=== PATIENT | male | born 1965 | race Caucasian/White ===

== ENCOUNTER 2016-05-27 22:45 | Emergency (ER) | payer MEDICARE, OTHER ==
[~2016-05-27 22:45] MED LIST: FOLI1 PO; GLIM1 PO; METF500 PO; THIA100T PO
[2016-05-28 00:23] VITALS: BP 121/93; PULSE 104; RESP 16; O2SAT 98
[2016-05-28] MEDS ORDERED: GLIM1 PO (00:26)
[2016-05-28] MEDS ORDERED: METF500T PO (00:26)
[2016-05-28] MEDS ORDERED: INSULIN ASPART 1,000 UNITS/10 ML VIAL SQ ONE (00:30)
[2016-05-28 01:26] LABS: BASOPHIL # 0.1 TH/MM3 (0-0.2); BASOPHIL % 0.9 % (0.0-2.0); EOSINOPHIL # 0.1 TH/MM3 (0-0.4); EOSINOPHIL % 1.1 % (0.0-4.0); HEMATOCRIT 38.2 % (39.0-51.0); HEMO FLAGS DIFF FINAL; LYMPH % 43.2 % (9.0-44.0); LYMPHOCYTE # 3.5 TH/MM3 (1.0-4.8); MEAN CELL VOLUME 85.5 FL (80.0-100.0); MEAN CORPUSCULAR HEMOGLOBIN 29.8 PG (27.0-34.0); MEAN CORPUSCULAR HGB CONC 34.9 % (32.0-36.0); MONO % 5.1 % (0.0-8.0); NEUT % 49.7 % (16.0-70.0); PLATELET COUNT 327 TH/MM3 (150-450); RED BLOOD COUNT 4.47 MIL/MM3 (4.50-5.90); RED CELL DISTRIBUTION WIDTH 11.9 % (11.6-17.2)
[2016-05-28 01:40] LABS: ALT (GPT) 25 U/L (12-78); ANION GAP 8 MEQ/L (5-15); AST (GOT) 13 U/L (15-37); BLOOD UREA NITROGEN 11 MG/DL (7-18); CHLORIDE 93 MEQ/L (98-107); GLOMERULAR FILTRATION RATE 85 ML/MIN (>89); POTASSIUM 4.1 MEQ/L (3.5-5.1); SODIUM (NA) 132 MEQ/L (136-145)
[2016-05-28 01:42] LABS: ALKALINE PHOSPHATASE 77 U/L (45-117); TOTAL BILIRUBIN ADULT 0.4 MG/DL (0.2-1.0)
[2016-05-28 02:10] VITALS: BP 103/59; PULSE 95; RESP 18; O2SAT 99
[2016-05-28 05:49] LABS: AMPHETAMINE, URINE NEG (NEG); BARBITURATES, URINE NEG (NEG); COCAINE, URINE NEG (NEG)
[2016-05-28] MEDS ORDERED: MOXIFLOXACIN 0.5% OPHT SOLN 3 ML BTL RIGHT EYE ONE (06:15)
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
[2016-05-28 06:32] VITALS: BP 133/87; PULSE 91; RESP 19; O2SAT 99
[2016-05-28] MEDS: MOXIFLOXACIN 0.5% OPHT SOLN 3 ML BTL RIGHT EYE SCH ×9 (07:42→15:33)
[2016-05-28] MEDS ORDERED: metFORMIN HCL 500 MG TAB PO SCH (10:30)
[2016-05-28 12:52] VITALS: BP 128/81; PULSE 120; RESP 22; O2SAT 98
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
[2016-05-28] MEDS ORDERED: MAXI5O EACH EYE (14:11)
[2016-05-29] MEDS ORDERED: GLIMEPIRIDE 1 MG TAB PO SCH (10:30)
== END 2016-05-28 16:15 | disposition home or self-care (01) ==
LOC: NED 22:45 → NEPJ 05-28 16:15
DX: F39 Unspecified mood [affective] disorder (principal); H16.001 Unspecified corneal ulcer, right eye
CPT/HCPCS: 80053; 80307; 85025; 96372; 99283; J1815; 80320